=== PATIENT | female | born 1985 | race Caucasian/White ===

== ENCOUNTER 2017-09-17 19:13 | Emergency (ER) | payer OTHER ==
[2017-09-17 19:18] VITALS: BMI 42.9
--- NOTE | 2017-09-17 20:08 | DR.GENAD ---
HPI - PCP Primary Care Physician: MELISSA - Complaint/Symptoms Chief Complaint Doctors Comments: RUQ pain intermittent for a few years. She has had a negative HIDA Scan over 1 year ago. She was recently scheduled to have an abdominal CT Scan done as her pain has worsened. She however, missed the CT Scan appt. This pain worsens with meals. 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 - Family History History of Family Medical Conditions: Yes Family Medical History: Diabetes Mellitus, Cancer, Hypertension - Social History Does patient currently use any type of tobacco product: No Have you used tobacco products in the last 12 months: No Type of Tobacco Use: None Does any household member use tobacco: No Alcohol Use: None Do you use any recreational Drugs:: No Lives With: Family Lives Where: Home - infectious screening In the last 2 months have you had wt loss of >10#?: NO Have you had fever, night sweats or hemotysis?: No Have you traveled outside the country in the last 6 months?: No Isolation: Standard ROS - Review of Systems Constitutional: No Symptoms Reported Eyes: No Symptoms Reported ENTM: No Symptoms Reported Respiratoy: No Symptoms Reported Cardiovascular: No Symptoms Reported Gastrointestinal/Abdominal: Abdominal Pain (located in RUQ) Genitourinary: No Symptoms Reported Neurological: No Symptoms Reported Musculoskeletal: No Symptoms Reported Integumentary: No Symptoms Reported Hematologic/Lymphatic: No Symptoms Reported Endocrine: No Symptoms Reported Psychiatric: No Symptoms Reported All Other Systems: Reviewed and Negative PE - Vital Signs Vitals: Temperature 97.6 F Pulse Rate 88 Respiratory Rate 18 Blood Pressure 138/91 O2 Sat by Pulse Oximetry 99 - General Limitations: No Limitations General Appearance: Alert, In No Apparent Distress - Head Head Exam: Normal Inspection - Eyes Eye exam: Normal Appearance - ENT ENT Exam: Normal Exam - Neck Neck Exam: Normal Inspection, Full ROM, Trachea Midline - Chest Chest Inspection: Normal Inspection, Symmetric Chest Wall Rise - Respiratory Respiratory Exam: Normal Lung Sounds Bilat - Cardiovascular Cardiovascular Exam: Regular Rate, Normal Rhythm, +S1, +S2 - Abdominal Exam Abdominal Exam: Normal Inspection, Normal Bowel Sounds, Soft, Tenderness (RUQ). negative: Distention, Guarding, Rebound, Rigidity, Dimnished Bowel Sounds, Hyperactive Bowel Sounds, Hypoactive Bowel Sounds, Organomegaly, Trauma, Ascites , Mass, Bruit, Pulsatile Mass, Hernia - Extremities Extremities Exam: Normal Inspection, Full ROM - Back Back Exam: Normal Inspection, Full ROM, (R) CVA Tenderness - Neurologic Neurological Exam: Alert, Oriented X3 - Psychiatric Psychiatric Exam: Normal Affect, Normal Mood - Skin Skin Exam: Warm, Dry Course - Education/Counseling Education/Counseling: Patient, Family Educated On: Treatment, Diagnosis, Needs for Follow Up ROR - Labs Reviewed Result Diagrams: 09/17/17 20:15 09/17/17 20:15 Laboratory: WBC 11.2 X10^3/uL (3.6-10.0) H 09/17/17 20:15 RBC 4.44 X10^6/uL (3.5-5.4) 09/17/17 20:15 Hgb 13.9 g/dL (12.0-16.0) 09/17/17 20:15 Hct 40.8 % (36.0-47.0) 09/17/17 20:15 MCV 91.8 fL (80.0-100.0) 09/17/17 20:15 MCH 31.3 pg (27.0-34.0) 09/17/17 20:15 MCHC 34.1 g/dL (33.0-35.0) 09/17/17 20:15 RDW 12.3 % (11.6-16.5) 09/17/17 20:15 Plt Count 333 X10^3/uL (150.0-450.0) 09/17/17 20:15 MPV 8.4 fL (7.4-11.0) 09/17/17 20:15 Neut % 61.7 % (42.0-75.0) 09/17/17 20:15 Lymph % 29.5 % (21.0-51.0) 09/17/17 20:15 [place] % 6.8 % (0.0-13.0) 09/17/17 20:15 Eos % 0.8 % (0.9-2.9) L 09/17/17 20:15 Baso % 1.2 % (0.2-1.0) H 09/17/17 20:15 Neut # 6.9 x10^3/uL (2.2-4.8) H 09/17/17 20:15 Lymph # 3.3 X10^3/uL (1.3-2.9) H 09/17/17 20:15 [place] # 0.8 x10^3/uL (0.3-0.8) 09/17/17 20:15 Eos # 0.1 x10^3/uL (0.0-0.2) 09/17/17 20:15 Baso # 0.1 X10^3/uL (0.0-0.1) 09/17/17 20:15 Absolute Nucleated RBC 0.1 /100WBC 09/17/17 20:15 Sodium 139 mmol/L (136-145) 09/17/17 20:15 Corrected Sodium TNP 09/17/17 20:15 Potassium 4.2 mmol/L (3.5-5.1) 09/17/17 20:15 Chloride 104 mmol/L (98-107) 09/17/17 20:15 Carbon Dioxide 25.8 mmol/L (21-32) 09/17/17 20:15 BUN 9 mg/dL (7-18) 09/17/17 20:15 Creatinine 0.67 mg/dL (0.55-1.02) 09/17/17 20:15 Est GFR (MDRD) Af Amer > 60 (>60) 09/17/17 20:15 Est GFR (MDRD) Non-Af > 60 (>60) 09/17/17 20:15 Glucose 103 mg/dL (65-99) H 09/17/17 20:15 Calcium 9.1 mg/dL (8.5-10.1) 09/17/17 20:15 Corrected Calcium TNP 09/17/17 20:15 Total Bilirubin 0.30 mg/dL (0.2-1.0) 09/17/17 20:15 AST 13 Units/L (15-37) L 09/17/17 20:15 ALT 28 Units/L (12-78) 09/17/17 20:15 Alkaline Phosphatase 88 Units/L (46-116) 09/17/17 20:15 Total Protein 7.3 g/dL (6.4-8.2) 09/17/17 20:15 Albumin 3.5 g/dL (3.4-5.0) 09/17/17 20:15 Globulin 3.8 g/dL (2.5-4.5) 09/17/17 20:15 Albumin/Globulin Ratio 0.9 Ratio (1.1-2.1) L 09/17/17 20:15 Specimen Type Clean catch urine 09/17/17 21:04 Urine Color Yellow (YELLOW) 09/17/17 21:04 Urine Appearance Clear (CLEAR) 09/17/17 21:04 Urine pH 7.0 (5.0 - 8.0) 09/17/17 21:04 Ur Specific [place] 1.010 (1.000-1.030) 09/17/17 21:04 Urine Protein Negative (NEGATIVE) 09/17/17 21:04 Urine Glucose (UA) Negative (NEGATIVE) 09/17/17 21:04 Urine Ketones Negative (NEGATIVE) 09/17/17 21:04 Urine Occult Blood 1+ (NEGATIVE) 09/17/17 21:04 Urine Nitrite Negative (NEGATIVE) 09/17/17 21:04 Urine Bilirubin Negative (NEGATIVE) 09/17/17 21:04 Urine Urobilinogen 1+ (NORMAL) 09/17/17 21:04 Ur Leukocyte Esterase 1+ (NEGATIVE) 09/17/17 21:04 Urine RBC Rare /HPF (NEGATIVE) 09/17/17 21:04 Urine WBC Rare /HPF (NEGATIVE) 09/17/17 21:04 Ur Squamous Epith Cells Few /HPF (NEGATIVE) 09/17/17 21:04 Amorphous Sediment Trace /HPF (NEGATIVE) 09/17/17 21:04 Urine Bacteria Trace /HPF (NEGATIVE) 09/17/17 21:04 Urine Mucus Moderate /HPF (NEGATIVE) 09/17/17 21:04 Ur Culture Indicated? No/not indicated 09/17/17 21:04 - XRAY XRAY Interpreted by: Radiologist (CT Abdomen w/ contrasrt: No acute abnormality. 4 cm lt. ovarian cyst, likely physiologic..) - Diagnosis Discharge Problem: Abdominal pain, RUQ - Discharge Plan Disposition: 01 HOME, SELF-CARE Condition: Stable - Follow ups/Referrals Follow ups/Referrals: MELISSA,DAMIAN [Primary Care Provider] - 3 days - Instructions
[2017-09-17 20:26] LABS: BASOPHILS # (AUTO) 0.1 X10^3/uL (0.0-0.1); BASOPHILS % (AUTO) 1.2 % (0.2-1.0); EOSINOPHILS # (AUTO) 0.1 x10^3/uL (0.0-0.2); EOSINOPHILS % (AUTO) 0.8 % (0.9-2.9); HEMATOCRIT 40.8 % (36.0-47.0); HEMOGLOBIN 13.9 g/dL (12.0-16.0); LYMPHOCYTES # (AUTO) 3.3 X10^3/uL (1.3-2.9); LYMPHOCYTES % (AUTO) 29.5 % (21.0-51.0); MEAN CORPUSCULAR HEMOGLOBIN 31.3 pg (27.0-34.0); MEAN CORPUSCULAR HGB CONC 34.1 g/dL (33.0-35.0); MEAN CORPUSCULAR VOLUME 91.8 fL (80.0-100.0); MEAN PLATELET VOLUME 8.4 fL (7.4-11.0); MONOCYTES # (AUTO) 0.8 x10^3/uL (0.3-0.8); MONOCYTES % (AUTO) 6.8 % (0.0-13.0); NEUTROPHILS # (AUTO) 6.9 x10^3/uL (2.2-4.8); NEUTROPHILS % (AUTO) 61.7 % (42.0-75.0); PLATELET COUNT 333 X10^3/uL (150.0-450.0); RED BLOOD COUNT 4.44 X10^6/uL (3.5-5.4); RED CELL DISTRIBUTION WIDTH 12.3 % (11.6-16.5); WHITE BLOOD COUNT 11.2 X10^3/uL (3.6-10.0)
[2017-09-17 20:37] LABS: ALANINE AMINOTRANSFERASE 28 Units/L (12-78); ALBUMIN 3.5 g/dL (3.4-5.0); ALKALINE PHOSPHATASE 88 Units/L (46-116); ASPARTATE AMINO TRANSFERASE 13 Units/L (15-37); BLOOD UREA NITROGEN 9 mg/dL (7-18); CALCIUM 9.1 mg/dL (8.5-10.1); CARBON DIOXIDE 25.8 mmol/L (21-32); CHLORIDE 104 mmol/L (98-107); CREATININE 0.67 mg/dL (0.55-1.02); SODIUM 139 mmol/L (136-145); TOTAL PROTEIN 7.3 g/dL (6.4-8.2); eGFR BLACK RACES > 60 (>60); eGFR NON BLACK RACES > 60 (>60)
[2017-09-17 21:32] LABS: BILIRUBIN,URINE NEGATIVE (NEGATIVE); BLOOD/HEMOGLOBIN,URINE 1+ (NEGATIVE); GLUCOSE, URINE NEGATIVE (NEGATIVE); KETONES,URINE NEGATIVE (NEGATIVE); LEUKOCYTE ESTERASE ,URINE 1+ (NEGATIVE); NITRITES,URINE NEGATIVE (NEGATIVE); PROTEIN,URINE NEGATIVE (NEGATIVE); UROBILINOGEN,URINE 1+ (NORMAL)
[2017-09-17 21:33] LABS: APPEARANCE,URINE CLEAR (CLEAR); COLOR,URINE YELLOW (YELLOW)
[2017-09-17 21:44] LABS: AMORPHOUS SEDIMENT,UR TRACE /HPF (NEGATIVE); BACTERIA,URINE TRACE /HPF (NEGATIVE); MUCUS,URINE MODERATE /HPF (NEGATIVE); RBC,URINE RARE /HPF (NEGATIVE); SQUAMOUS EPITHELIAL CELL,UR FEW /HPF (NEGATIVE)
[2017-09-17] MEDS ORDERED: NS 100 ML IV 100 ML IV ONE (22:08)
--- NOTE | 2017-09-17 23:13 | CT ---
CT abdomen and pelvis with contrast Indication: Right upper quadrant abdominal pain Technique: Helical CT images of the abdomen and pelvis were obtained with IV contrast. Reformatted im ages in the coronal and sagittal planes were also generated for review. Comparison: None Findings: Lung bases are clear. No aggressive osseous lesions are identified. The liver, gallbladder, spleen, pancreas adrenals and kidneys are unremarkable. There is no bowel inf lammation or obstruction. The appendix is normal. The IVC and abdominal aorta are normal. The urinary bladder is collapsed, limiting evaluation. There is a 4 cm left ovarian cyst. The uterus and right a dnexa are otherwise grossly within normal limits. No free air, free fluid or lymphadenopathy is ident ified. Impression: No acute abnormality to explain patient's symptoms. 4 cm left ovarian cyst, likely physiologic in a patient of child-bearing age. Reported By:
[2017-09-17] MEDS ORDERED: TORADOL 30 MG VIAL IVP ONE (23:33)
[2017-09-17] MEDS ORDERED: TORADOL 30 MG VIAL ONE (23:34)
[2017-09-17 23:49] VITALS: BP 139/81
== END 2017-09-17 23:47 | disposition home or self-care (01) ==
LOC: ER 19:13
DX: R10.11 Right upper quadrant pain (principal)
CPT/HCPCS: 36415; 74177; 80053; 81001; 85025; 96365; 96374; 99282; 99283; A4222; J1885